=== PATIENT | female | born 1970 | race Caucasian/White ===

== ENCOUNTER 2018-03-24 00:20 | Observation (INO) | payer BC ==
[2018-03-23 15:57] LABS: PLATELET COUNT, AUTOMATED 343 K/uL (150-450)
[2018-03-24] VITALS (12 sets, daily range): BP systolic 101–138; BP diastolic 57–76
[~2018-03-24] VITALS: Ht 162.6 cm; Wt 74.8 kg
[~2018-03-24 00:20] MED LIST: MISO200T59 PV
[2018-03-24] MEDS: NORMOSOL R SOLN(*) 1000 ML BAG 1,000 ML IV PRN ×2 (06:38→12:11)
[2018-03-24] MEDS ORDERED: HYDROmorphone HCL 2 MG/ML SDV ONE ×2 (06:44→09:06)
[2018-03-24] MEDS ORDERED: HYDROmorphone HCL 2 MG/ML SDV IVP ONE (06:45)
[2018-03-24] MEDS ORDERED: BUPIV/EPI 0.25% 1:200,000 50ML INFIL ONE (07:25)
[2018-03-24] MEDS ORDERED: ROCURONIUM BROM 10 MG/ML 10 ML ONE (07:43)
[2018-03-24] MEDS ORDERED: SUGAMMADEX SOD 200 MG/2 ML SDV ONE ×2 (07:43→10:31)
[2018-03-24] MEDS ORDERED: DEXAMETHASONE SOD 4 MG/ML VIAL ONE (07:43)
[2018-03-24] MEDS ORDERED: ONDANSETRON 4 MG/2 ML VIAL ONE (07:43)
[2018-03-24] MEDS ORDERED: fentaNYL CITR 250 MCG/5 ML AMP ONE (07:43)
[2018-03-24] MEDS ORDERED: PROPOFOL EMUL(*) 10MG/ML 20 ML 20 ML ONE ×2 (07:43→10:12)
[2018-03-24] MEDS ORDERED: LIDOCAINE MPF 1% 5 ML VIAL ONE (07:43)
[2018-03-24] MEDS ORDERED: KETAMINE HCL 200 MG/20 ML MDV ONE (07:50)
[2018-03-24] MEDS ORDERED: PHENAZOPYRIDINE 200 MG TAB PO ONE (08:00)
[2018-03-24] MEDS ORDERED: FAMOTIDINE 20 MG TAB PO ONE (08:00)
[2018-03-24] MEDS ORDERED: ceFAZolin(*) 1 GM VIAL 1 GM in NS(*) 0.9% 100 ML ADDVANT BAG 100 ML IVPB ONE (08:00)
[2018-03-24] MEDS ORDERED: LIDOCAINE/SOD BICARB 8.4% SYR ID ONE (08:00)
[2018-03-24] MEDS ORDERED: MIDAZOLAM 2 MG/2 ML VIAL IVP PRN (08:00)
[2018-03-24] MEDS ORDERED: PROPOFOL EMUL(*) 10MG/ML 20 ML 40 ML ONE (09:25)
[2018-03-24] MEDS ORDERED: DLR(*) 1000 ML BAG 1,000 ML IV PRN (11:12)
[2018-03-24] MEDS ORDERED: METOCLOPRAMIDE 10 MG/2 ML SDV IVP PRN (11:15)
[2018-03-24] MEDS ORDERED: MAGNESIUM HYDROXIDE* 30ML UDCP PO PRN (11:15)
[2018-03-24] MEDS ORDERED: ONDANSETRON 4 MG/2 ML VIAL IVP PRN (11:15)
[2018-03-24] MEDS ORDERED: SIMETHICONE 80 MG CHEW CHEW PRN (11:15)
[2018-03-24] MEDS ORDERED: ACETAMINOPHEN 325 MG TAB PO PRN (11:15)
[2018-03-24] MEDS ORDERED: HYDROmorphone HCL 2 MG/ML SDV IVP PRN (11:15)
[2018-03-24] MEDS ORDERED: IBUPROFEN 800 MG TAB PO PRN (11:15)
--- NOTE | 2018-03-24 11:21 | Post Operative Note ---
Operative Note - AUDIO VISUAL SECRETARY Operative Day Date: March 24, 2018 Physicians Surgeon: Arnaldo Skein Tier: Subha Anesthesia: GETA, Bullock Diagnosis Pre-Op Diagnosis: Symptomatic uterine fibroids Heavy and irregular bleeding Post-Op Diagnosis: Same Procedure Procedure(s): KIP, PHYLLIS, dx cysto Biopsy of left ovary Specimen Removed:(Maybe N/A): Uterus, cervix, bilateral fallopian tubes Left ovarian biopsy Fluids Fluids: IVF: 1900cc Estimated Blood Loss: 10cc SONALI QUINTANILLA MD March 24, 2018 11:21
[2018-03-24] MEDS ORDERED: KETOROLAC 30 MG/ML VIAL IVP SCH ×2 (12:00→16:00)
[2018-03-24] MEDS ORDERED: IBUP800T37 PO (16:19)
[2018-03-24] MEDS ORDERED: OXYC-865 PO (16:19)
--- NOTE | 2018-03-24 16:24 | OB/GYN Progress Note ---
OB Subjective Progress Notes Subjective Doing well. Pain controlled with oral medications. Tolerating regular diet. Ambulating. Voiding. Minimal vaginal bleeding. No chest pain, shortness of breath or dizziness. Requesting to go home today. OB Objective Physical Exam Vital Signs Date Time Temp Pulse Resp B/P (MAP) Pulse Ox O2 Delivery O2 Flow Rate FiO2 03/24/18 15:00 109 112/65 (81) 94 Nasal Cannula 1.0 03/24/18 12:10 14 03/24/18 12:10 98.1 Intake and Output 03/25/18 07:00 Intake Total 2100 ml Output Total 1900 ml Balance 200 ml Intake IV Total 2100 ml Output Urine Total 1900 ml General Appearance: Alert/Awake/No Acute Distress Neurological: No Gross deficits Cardiovascular: Normal Rhythm & Peripheral Pulses, Regular Rate and Rhythm Respiratory: No Respiratory Distress Abdomen: Soft, Non-Tender, Non-Distended Incision: Clean, Dry, Intact Extremities: No Cyanosis,Clubbing or Edema Integumentary: Skin Intact without Lesions or Rash Psychological: Alert & Oriented X3, Appropriate Mood & Affect Result Diagram: 03/23/18 1550 Assessment and Plan Problems: (1) Status post hysterectomy Assessment & Plan: POD#0 s/p RATLH/BS/dx cysto. Requesting discharge to home. Her and daughter will be with her. Will plan discharge and follow up 04/08 as scheduled. SONALI QUINTANILLA MD March 24, 2018 16:24
--- NOTE | 2018-03-24 16:25 | OB/GYN Discharge Summary ---
Discharge Summary Reason for Hosp/Final Diag: (1) Status post hysterectomy Hospital Course & Plan: POD#0 s/p RATLH/BS/dx cysto. Requesting discharge to home. Her and daughter will be with her. Will plan discharge and follow up 04/08 as scheduled. Lates Vital Signs Vital Signs Date Time Temp Pulse Resp B/P (MAP) Pulse Ox O2 Delivery O2 Flow Rate FiO2 03/24/18 15:00 109 112/65 (81) 94 Nasal Cannula 1.0 03/24/18 12:10 14 03/24/18 12:10 98.1 Weight (Pounds): 165 Result Diagram: 03/23/18 1550 Condition: Improved Discharge: Home, Self [facility] Meds Active Scripts Oxycodone Hcl/Acetaminophen (PERCOCET 5-325 MG TABLET) 1 Each Tablet, 1-2 TAB PO Q4H Y for pain, #30 TAB 0 Refills Prov:SONALI MCINTOSH MD 03/24/18 Ibuprofen (IBUPROFEN) 800 Mg Tablet, 1 TAB PO Q8H Y for pain, #30 TAB 0 Refills TAKE WITH FOOD EVERY 8 HOURS Prov:SONALI MCINTOSH MD 03/24/18 Discontinued Scripts Misoprostol (CYTOTEC) 200 Mcg Tablet, 400 MCG PV ONCE, #2 TAB 0 Refills 2 TABS VAGINALLY 6-8 HRS BEFORE PROCEDURE Prov:SONALI MCINTOSH MD 03/17/18 Follow up Referrals: DRILL GRINDER - 04/08/18 @ [facility] with Sonali Mcintosh Md Discharge Diet: As Tolerates Discharge Activity: No Heavy Lifting > 10lb, Pelvic Rest SONALI MCINTOSH MD March 24, 2018 16:25
--- NOTE | 2018-03-24 18:42 | OPERATIVE REPORT 1 ---
DELIVERY DATE: March 24, 2018 SURGEON: Marissa Mcintosh MD TRUST CLERK: Charles Mascorro DO ANESTHESIOLOGIST: Allen Bullock MD ANESTHESIA: General endotracheal tube anesthetic, Allen Bullock MD PREOPERATIVE DIAGNOSIS 1. Symptomatic uterine fibroids. 2. Heavy irregular bleeding. POSTOPERATIVE DIAGNOSIS 1. Symptomatic uterine fibroids. 2. Heavy irregular bleeding. PROCEDURE 1. Robotic-assisted total laparoscopic hysterectomy with bilateral salpingectomy. 2. Diagnostic cystoscopy. 3. Biopsy of left ovary. SPECIMENS REMOVED 1. Uterus, cervix, bilateral fallopian tubes. 2. Left ovarian biopsy. IV FLUIDS 1900 mL ESTIMATED BLOOD LOSS 10 mL INDICATIONS FOR PROCEDURE This patient is 47-year-old 2, para 2 who presented to clinic with symptomatic uterine fibroids. She has complained of irregular and heavy menses for quite some time. She is now electing to proceed with definitive surgery with the procedure as stated above. Please see the history and physical for full details. Of note, the patient was treated with Misoprostol vaginally the night before to help with cervical stenosis. She called the morning of the surgery in severe pain and was admitted to the preoperative area early in order to be administered Dilaudid. One dose of Dilaudid was sufficient to get her to her surgery. DESCRIPTION OF PROCEDURE The patient was properly identified and taken to the operating room. She was placed under general endotracheal anesthesia, placed in the dorsal lithotomy position, and prepped and draped in the usual fashion for a laparoscopic- assisted vaginal procedure. The patient received Ancef preoperatively for prophylactic antibiotics. Her SCDs were on and functioning. A bimanual exam was performed which revealed an enlarged uterus. A speculum was then placed to visualize the cervix, which was noted to be multiparous and without lesion. The anterior lip was grasped with an Allis clamp. The cervix was then serially dilated to 5 mm using Paulette dilators without any resistance. A medium VCare uterine manipulator was then requested and assembled. A suture was placed on the anterior lip of the of the cervix, through the os, and then through to the posterior lip of the cervix. This was then passed through the VCare. The VCare was then placed up to the uterine fundus and the tip was insufflated. This remained in place and the colpotomy ring was advanced to be flush against the cervix and vaginal mucosa. This was then tied down with an 0 Vicryl suture. The pneumo-occluder was then advanced in the vagina and secured. A Real catheter was then placed to drain the bladder. The patient was then placed in the supine position and attention was turned to the laparoscopic portion of the procedure. The supraumbilical region was infiltrated with 0.25% Marcaine with epinephrine. A Veress needle was tested and proven to be functioning. An 8 mm incision was taken made supraumbilically. A Veress needle was passed through the umbilicus into the abdominal cavity using the double click test. A pneumoperitoneum was then achieved. The 8 mm trocar was then introduced through the supraumbilical midline incision under direct visualization using a Panizon laparoscope. Once entry into the abdominal cavity was confirmed, the remaining locations of the trocars were planned with two on the right and two on the left. The two 8 mm trocars were inserted under direct visualization on the patient's right side after infiltration of 0.25% Marcaine with epinephrine. On the patient's left side, an 11 mm incision was made for the administrative assistant front desk port , and an 8 mm incision on the other robotic arm. These two ports were then introduced under direct visualization. At this time the patient was placed into Trendelenburg position and the da Jay Jay robotic system was prepared for docking. It was then brought in and aligned. The endoscope port was docked. The endoscope was then introduced and targeting was performed on the uterus. The remaining arms were then docked without difficulty. The fenestrated bipolar graspers, progress and monopolar systems were then advanced under direct visualization into the pelvis and energy was connected. At this time I was able to break sterile attire and sit at the console to initiate the hysterectomy. Examination of the pelvis revealed no significant adhesions or abnormalities, with the exception of a fleshy lesion which was small on the left ovary. In order to initiate the salpingectomy on the patient' s left side, the patient's left fallopian tube was elevated and the mesosalpinx was cauterized and transected using a combination of bipolar and monopolar scissors. The round ligament on the left side was then identified, cauterized and transected, followed by the utero-ovarian ligament. This allowed opening of the broad ligament of the uterus on the left side. The anterior leaflet was then brought down and across the midline above the colpotomy ring in order to separate the vesicouterine peritoneum. The posterior peritoneum was then dissected further off the uterus on the left side, down to the cervix. The uterine vessels were then identified, cauterized and transected in order to allow the colpotomy to be performed. Attention was then turned to the patient' s right side, where the right fallopian tube was elevated, the mesosalpinx was cauterized and transected followed by cauterization and transection of the right round ligament. The utero-ovarian ligament on the right side was then cauterized and transected as well. The broad ligament as then able to be opened and the anterior leaflet was brought down to meet the anterior aspect of the other side. The vesicouterine peritoneum as then further dissected to develop the bladder flap and reflect it down below the colpotomy ring in order to allow sufficient space for the closure of the vaginal cuff. The posterior peritoneum was then taken down on the patient's right side, which allowed visualization of the uterine vessels. The uterine vessels were then cauterized and transected on the right side. The colpotomy was then initiated anteriorly with identification of the colpotomy ring. The colpotomy was then continued in a circumferential fashion until the entire colpotomy was completed. The uterus was then delivered through the vagina and a bulb grenade was placed in the vagina to maintain pneumoperitoneum. The cuff was then copiously irrigated and noted to be hemostatic. An 0 Vicryl suture was utilized in a [id number] manner to reapproximate the tissue on the left corner. A V-Lock was then initiated on the right side to reapproximate the right corner, following to the left with an unlocked suture. Once this was completely closed the suture was followed backwards with two additional sutures towards the right. Once this was completed copious irrigation was again performed revealing adequate hemostasis. Next, attention was again turned to the left ovary, which did have a fleshy lesion on it. This was removed using bipolar hemostasis and monopolar scissors, and removed through the 11 mm port and sent to Pathology for further evaluation. Next, using the Opal[place]y, the fascia of the administrative assistant front desk port was then closed using an 0 Vicryl with robotic assistance. All of the robotic arms were undocked and the instruments were removed. The pneumoperitoneum was relieved and the 11 mm fascia was tied down. All five skin incisions were reapproximated using a 4-0 Monocryl and closed with Dermabond. The Real catheter was then removed from the bladder. A cystoscope was assembled and introduced through the urethra and into the bladder under direct visualization. The entire bladder was evaluated and noted to be normal without any lesion or sutures. Bilateral ureteral jets were noted with yellow urine. The cystoscope was then removed and the Real catheter was replaced. The patient tolerated this procedure well and recovered in the Post Anesthesia Care Unit. All sponge, needle and instrument counts were correct at the end of the procedure. CASANDRA
[2018-03-24] MEDS ORDERED: FAMOTIDINE 20 MG TAB PO SCH (21:00)
[2018-03-24] MEDS ORDERED: DOCUSATE CALCIUM 240 MG CAP PO SCH (21:00)
[2018-03-25] MEDS ORDERED: IBUPROFEN 800 MG TAB PO PRN (10:00)
[2018-03-25] MEDS ORDERED: INFLUENZA VIRUS VAC 0.5 ML SYR IM ONLY ONE (11:15)
== END 2018-03-24 16:13 | disposition home or self-care (01) ==
LOC: OR 00:20 → PED 12:44
PROVIDERS: ADMIT Obstetrics & Gynecology; ATTEND Obstetrics & Gynecology
DX: D25.9 Leiomyoma of uterus, unspecified (principal); N92.6 Irregular menstruation, unspecified
CPT/HCPCS: 36415; 49321; 58571; 84703; 85025; 88305; 88307; G0378; J0690; J1100; J1170; J1885; J2001; J2250; J2405; J2704; J3010; J3490; J7050; S2900

== ENCOUNTER → 2018-04-02 | Outpatient (REF) | payer BC ==
[~2018-04-02] MED LIST changes: +IBUP800T37 PO; +OXYC-865 PO; +SULF1TAB24 PO
== END ==
LOC: ZZSTITCHES 19:11
PROVIDERS: ATTEND Physician Assistant
DX: R30.0 Dysuria (principal)
CPT/HCPCS: 87088

== ENCOUNTER → 2018-04-02 | Outpatient (REF) | payer BC ==
[2018-04-02 19:26] LABS: PLATELET COUNT, AUTOMATED 337 K/uL (150-450)
== END ==
PROVIDERS: ATTEND Nurse Practitioner Family
DX: Z00.00 Encounter for general adult medical examination without abnormal findings (principal)
CPT/HCPCS: 85025